=== PATIENT | female | born 2005 | race Caucasian/White ===

== ENCOUNTER 2025-03-03 01:20 | Emergency (ER) | payer MEDICAID, OTHER ==
[~2025-03-03] VITALS: Ht 170.2 cm; Wt 86.2 kg
[2025-03-03] MEDS ORDERED: ALBUTEROL SULFATE 2.5 MG/3 ML NEBU ONE (02:04)
[2025-03-03] MEDS ORDERED: IPRATROPIUM BROMIDE 0.5 MG/2.5 ML NEBU ONE (02:04)
[2025-03-03 02:10] VITALS: O2SAT 95
[2025-03-03] MEDS ORDERED: predniSONE 20 MG TABLET ONE (02:12)
[2025-03-03] MEDS: predniSONE 20 MG TABLET PO ONE (02:15)
[2025-03-03] MEDS: ACETAMINOPHEN 500 MG TABLET PO ONE (02:15)
[2025-03-03] MEDS: IPRATROPIUM BROMIDE 0.5 MG/2.5 ML NEBU NEB ONE (02:28)
[2025-03-03] MEDS: ALBUTEROL SULFATE 2.5 MG/3 ML NEBU NEB ONE (02:28)
[2025-03-03 02:35] VITALS: O2SAT 98
[2025-03-03] MEDS ORDERED: ALBU18HF2 INH (03:54)
[2025-03-03] MEDS ORDERED: LORA10TA7 PO (03:54)
[2025-03-03] MEDS ORDERED: PRED20TA PO (03:54)
[2025-03-03 04:00] VITALS: BP 140/93; O2SAT 96
== END 2025-03-03 04:01 | disposition home or self-care (01) ==
LOC: ER 01:20
DX: J45.909 Unspecified asthma, uncomplicated (principal); B97.89 Other viral agents as the cause of diseases classified elsewhere; R07.9 Chest pain, unspecified; Z79.52 Long term (current) use of systemic steroids
CPT/HCPCS: 99283; 71045; 94640; J7512; A4606; A4663; A9150; J3590